=== PATIENT | male | born 1980 | race Two or more races ===

== ENCOUNTER 2017-12-02 20:42 | Inpatient (IN) | payer BC, MEDICAID ==
[~2017-12-02] VITALS: Ht 175.3 cm; Wt 96.6 kg
[2017-12-02 21:33] LABS: Basophils # (auto) 0 uL; Basophils % (auto) 0.4 % (0.0-2.0); Eosinophils # (auto) 0.2 uL; Eosinophils % (auto) 1.9 % (0.0-7.0); Hematocrit 42.4 % (41.0-53.0); Hemoglobin 14.2 g/dL (13.5-17.5); Lymphocytes # (auto) 1.7 uL; Lymphocytes % (auto) 14.6 % (10.0-50.0); Mean Corpuscular Hemoglobin 31.1 pg (28.0-32.0); Mean Corpuscular Hgb Conc. 33.4 g/dL (32.0-36.0); Mean Corpuscular Volume 93.3 fL (80.0-100.0); Monocytes # (auto) 0.9 uL; Monocytes % (auto) 7.6 % (0.0-12.0); Neutrophils # (auto) 8.8 uL; Neutrophils % (auto) 75.5 % (37.0-80.0); Nucleated Red Blood Cells % 0.1 %; Platelet Count (auto) 236 10^3/uL (140-450); Red Blood Cells 4.54 10^6/uL (4.5-5.90); Red Cell Distribution Width 12.4 % (11.8-14.3); White Blood Cell 11.6 10^3/uL (4.4-10.8)
[2017-12-02 21:48] LABS: Urine Bacteria NONE SEEN /hpf (None Seen); Urine Blood Negative /uL (Negative); Urine Specific Gravity 1.024 (1.001-1.035); Urine WBC <1 /hpf (0 - 3)
[2017-12-02 21:51] LABS: Albumin 3.9 g/dL (3.4-5.0); BUN/Creatinine Ratio 15.6; Calcium 9.5 mg/dL (8.5-10.1); Potassium 3.7 mmol/L (3.5-5.1)
[2017-12-02 21:54] LABS: Bilirubin, Total 0.3 mg/dL (0.2-1.0); Total Protein 7.5 g/dL (6.4-8.2)
[2017-12-03] MEDS ORDERED: VANCOMYCIN PER PHARMACY 0 MG IV SCH (07:45)
[2017-12-03] MEDS ORDERED: LORazepam 0.5 MG TAB PO PRN (10:30)
[2017-12-03] MEDS ORDERED: LEVOFLOXACIN 500MG 100 ML IV ONE (10:30)
[2017-12-03] MEDS ORDERED: TEMAZEPAM 15 MG CAP PO PRN (10:30)
[2017-12-03] MEDS ORDERED: ACETAMINOPHEN 500 MG TAB PO PRN (10:30)
[2017-12-03] MEDS: PROMETHAZINE HCL 25 MG/ML 1ML IV PRN ×3 (10:48→21:45)
[2017-12-03] MEDS: MORPHINE SULFATE 10 MG/ML INJ 1ML SDV IV PRN ×3 (10:49→22:11)
[2017-12-03] MEDS: SODIUM CHLORIDE 0.9% 1,000 ML IV SCH ×2 (10:53→20:19)
[2017-12-03] MEDS: metroNIDAZOLE 500MG/100ML 100 ML IV SCH ×3 (12:11→23:51)
[2017-12-03 12:47] LABS: Hematocrit 41.3 % (41.0-53.0); Hemoglobin 14.1 g/dL (13.5-17.5)
[2017-12-03 13:13] LABS: INR 0.97 (0.9-1.15); Partial Thromboplastin Time 34.1 sec (22.64-33.71); Prothrombin Time 10.6 sec (9.37-12.3)
[2017-12-03 18:32] LABS: Hematocrit 39.9 % (41.0-53.0); Hemoglobin 13.4 g/dL (13.5-17.5)
[2017-12-03 20:00] VITALS: BP 106/55
[2017-12-03 21:35] VITALS: BP 106/55
[2017-12-03] MEDS ORDERED: MORPHINE SULF INJ 2 MG/ML SYRINGE 1ML ONE (21:39)
[2017-12-03] MEDS: FAMOTIDINE 20 MG TAB PO SCH (21:45)
[2017-12-04 01:24] LABS: Hematocrit 37.1 % (41.0-53.0); Hemoglobin 12.6 g/dL (13.5-17.5)
[2017-12-04] MEDS ORDERED: MULTTAB61 PO (03:19)
[2017-12-04] MEDS: metroNIDAZOLE 500MG/100ML 100 ML IV SCH ×4 (05:49→23:55)
[2017-12-04] MEDS ORDERED: MORPHINE SULF INJ 2 MG/ML SYRINGE 1ML ONE (05:56)
[2017-12-04 06:00] VITALS: BP 97/52
[2017-12-04] MEDS: MORPHINE SULFATE 10 MG/ML INJ 1ML SDV IV PRN (06:08)
[2017-12-04] MEDS: SODIUM CHLORIDE 0.9% 1,000 ML IV SCH ×2 (06:19→18:35)
[2017-12-04 08:57] VITALS: BP 96/54
[2017-12-04] MEDS: FAMOTIDINE 20 MG TAB PO SCH ×2 (10:52→22:03)
[2017-12-04] MEDS: LEVOFLOXACIN 500MG 100 ML IV SCH (10:52)
[2017-12-04] MEDS: MORPHINE SULF INJ 2 MG/ML SYRINGE 1ML IV PRN ×2 (12:17→19:05)
[2017-12-04 13:00] VITALS: BP 114/61
[2017-12-04 17:00] VITALS: BP 113/69
[2017-12-04 20:00] VITALS: BP 133/75
[2017-12-04 22:00] VITALS: BP 133/75
[2017-12-05] MEDS: MORPHINE SULF INJ 2 MG/ML SYRINGE 1ML IV PRN ×4 (01:30→19:19)
[2017-12-05] MEDS: SODIUM CHLORIDE 0.9% 1,000 ML IV SCH ×3 (02:19→22:24)
[2017-12-05 05:00] VITALS: BP 117/66
[2017-12-05 05:37] LABS: Basophils # (auto) 0 uL; Basophils % (auto) 0.4 % (0.0-2.0); Eosinophils # (auto) 0.2 uL; Eosinophils % (auto) 3.3 % (0.0-7.0); Hemoglobin 12.4 g/dL (13.5-17.5); Lymphocytes # (auto) 1.4 uL; Lymphocytes % (auto) 24.6 % (10.0-50.0); Mean Corpuscular Hemoglobin 31.4 pg (28.0-32.0); Mean Corpuscular Hgb Conc. 33.5 g/dL (32.0-36.0); Mean Corpuscular Volume 93.7 fL (80.0-100.0); Monocytes # (auto) 0.5 uL; Monocytes % (auto) 9.3 % (0.0-12.0); Neutrophils # (auto) 3.5 uL; Neutrophils % (auto) 62.4 % (37.0-80.0); Nucleated Red Blood Cells % 0.1 %; Platelet Count (auto) 218 10^3/uL (140-450); Red Blood Cells 3.95 10^6/uL (4.5-5.90); Red Cell Distribution Width 12.4 % (11.8-14.3); White Blood Cell 5.7 10^3/uL (4.4-10.8)
[2017-12-05] MEDS: metroNIDAZOLE 500MG/100ML 100 ML IV SCH ×3 (05:57→18:11)
[2017-12-05 06:00] LABS: BUN/Creatinine Ratio 9.4; Calcium 8.8 mg/dL (8.5-10.1); Potassium 3.9 mmol/L (3.5-5.1)
[2017-12-05 09:00] VITALS: BP 111/68
[2017-12-05] MEDS: LEVOFLOXACIN 500MG 100 ML IV SCH (09:23)
[2017-12-05] MEDS: FAMOTIDINE 20 MG TAB PO SCH ×2 (09:23→21:09)
[2017-12-05] MEDS: HYDROcodone-ACET 5/325MG TAB PO PRN ×2 (09:29→20:49)
[2017-12-05 12:37] VITALS: BP 143/91
[2017-12-05 16:59] VITALS: BP 119/79
[2017-12-05] MEDS: PROMETHAZINE HCL 25 MG/ML 1ML IV PRN (20:46)
[2017-12-05 22:00] VITALS: BP 139/91
[2017-12-06] MEDS: MORPHINE SULF INJ 2 MG/ML SYRINGE 1ML IV PRN ×2 (00:15→05:54)
[2017-12-06 05:10] VITALS: BP 100/63
[2017-12-06] MEDS: metroNIDAZOLE 500MG/100ML 100 ML IV SCH ×3 (05:53→12:00)
[2017-12-06 06:20] LABS: Basophils # (auto) 0 uL; Basophils % (auto) 0.5 % (0.0-2.0); Eosinophils # (auto) 0.2 uL; Eosinophils % (auto) 4.4 % (0.0-7.0); Hematocrit 37.1 % (41.0-53.0); Hemoglobin 12.7 g/dL (13.5-17.5); Lymphocytes # (auto) 1.5 uL; Lymphocytes % (auto) 29.9 % (10.0-50.0); Mean Corpuscular Hemoglobin 31.8 pg (28.0-32.0); Mean Corpuscular Hgb Conc. 34.2 g/dL (32.0-36.0); Mean Corpuscular Volume 93.1 fL (80.0-100.0); Monocytes # (auto) 0.6 uL; Monocytes % (auto) 12.1 % (0.0-12.0); Neutrophils # (auto) 2.7 uL; Neutrophils % (auto) 53.1 % (37.0-80.0); Nucleated Red Blood Cells % 0.1 %; Platelet Count (auto) 237 10^3/uL (140-450); Red Blood Cells 3.98 10^6/uL (4.5-5.90); Red Cell Distribution Width 12.5 % (11.8-14.3)
[2017-12-06 07:22] VITALS: BP 97/48
[2017-12-06] MEDS: LEVOFLOXACIN 500MG 100 ML IV SCH (09:35)
[2017-12-06] MEDS: FAMOTIDINE 20 MG TAB PO SCH (09:35)
[2017-12-06] MEDS: SODIUM CHLORIDE 0.9% 1,000 ML IV SCH (09:38)
[2017-12-06 11:32] VITALS: BP 97/54
[2017-12-06 12:14] VITALS: BP 106/63
== END 2017-12-06 14:00 | disposition home or self-care (01) | DRG 378 ==
LOC: ER 20:42 → OVERFLOW 20:43 → WEST WING 12-03 16:57 → CENTRAL 12-03 18:53
PROVIDERS: ADMIT Internal Medicine; ATTEND Internal Medicine
DX: K92.2 Gastrointestinal hemorrhage, unspecified (principal); K57.32 Diverticulitis of large intestine without perforation or abscess without bleeding; K52.9 Noninfective gastroenteritis and colitis, unspecified; D64.9 Anemia, unspecified; Z82.0 Family history of epilepsy and other diseases of the nervous system; Z82.49 Family history of ischemic heart disease and other diseases of the circulatory system; Z83.3 Family history of diabetes mellitus; Z88.0 Allergy status to penicillin
CPT/HCPCS: 36415; 71045; 74176; 80048; 80053; 81001; 82270; 82378; 83605; 83690; 85014; 85018; 85025; 85045; 85610; 85652; 85730; 86141; 86850; 86900; 86901; 87040; 96361; 96365; 96375; J1956; J3490

== ENCOUNTER 2017-12-29 16:32 | Inpatient (IN) | payer BC ==
[~2017-12-29] VITALS: Ht 175.3 cm; Wt 83.9 kg
[~2017-12-29 16:32] MED LIST: MULTTAB61 PO
[2017-12-30] MEDS ORDERED: SODIUM CHLORIDE 0.9% 1,000 ML IVB ONE (09:14)
[2017-12-30] MEDS ORDERED: cefTRIAXone 1GM/10ml IVPUSH 10 ML IV ONE (09:15)
[2017-12-30] MEDS ORDERED: MORPHINE SULF INJ 2 MG/ML SYRINGE 1ML IV PRN (09:15)
[2017-12-30] MEDS ORDERED: PROMETHAZINE HCL 25 MG/ML 1ML IV PRN ×2 (09:15→13:30)
[2017-12-30] MEDS ORDERED: MORPHINE SULFATE 4 MG/ML SYR/VIAL IV PRN ×3 (09:30→13:30)
[2017-12-30 09:38] LABS: Basophils # (auto) 0 uL; Basophils % (auto) 0.2 % (0.0-2.0); Eosinophils # (auto) 0.1 uL; Eosinophils % (auto) 1.9 % (0.0-7.0); Hematocrit 42.3 % (41.0-53.0); Hemoglobin 14.3 g/dL (13.5-17.5); Lymphocytes # (auto) 1.4 uL; Lymphocytes % (auto) 20.7 % (10.0-50.0); Mean Corpuscular Hemoglobin 31.3 pg (28.0-32.0); Mean Corpuscular Hgb Conc. 33.7 g/dL (32.0-36.0); Mean Corpuscular Volume 92.8 fL (80.0-100.0); Monocytes # (auto) 0.5 uL; Monocytes % (auto) 7.8 % (0.0-12.0); Neutrophils # (auto) 4.6 uL; Neutrophils % (auto) 69.4 % (37.0-80.0); Nucleated Red Blood Cells % 0.1 %; Platelet Count (auto) 226 10^3/uL (140-450); Red Blood Cells 4.55 10^6/uL (4.5-5.90); White Blood Cell 6.6 10^3/uL (4.4-10.8)
[2017-12-30 09:59] LABS: Albumin 3.9 g/dL (3.4-5.0); BUN/Creatinine Ratio 12.3; Bilirubin, Total 0.6 mg/dL (0.2-1.0); Calcium 9.1 mg/dL (8.5-10.1); Total Protein 7.8 g/dL (6.4-8.2)
[2017-12-30 10:30] LABS: Magnesium 2.4 mg/dL (1.6-2.6)
[2017-12-30 10:52] LABS: Urine WBC None Seen /hpf (0 - 3)
[2017-12-30 11:41] LABS: Urine Bacteria NONE SEEN /hpf (None Seen); Urine Blood Negative /uL (Negative); Urine Specific Gravity 1.017 (1.001-1.035)
[2017-12-30] MEDS ORDERED: HYDROcodone-ACET 5/325MG TAB PO PRN (13:30)
[2017-12-30] MEDS ORDERED: FAMOTIDINE (10MG/ML) 2ML VL IV SCH (13:30)
[2017-12-30] MEDS ORDERED: NITROGLYCERIN 0.4 MG SL TAB SL PRN (13:30)
[2017-12-30] MEDS ORDERED: TEMAZEPAM 15 MG CAP PO PRN (13:30)
[2017-12-30] MEDS ORDERED: DEXTROSE (50%) 50ML SYRG IV PRN (13:30)
[2017-12-30] MEDS ORDERED: ACETAMINOPHEN 500 MG TAB PO PRN (13:30)
[2017-12-30] MEDS ORDERED: LORazepam 0.5 MG TAB PO PRN (13:30)
[2017-12-30] MEDS ORDERED: LEVOFLOXACIN 500MG 100 ML IV ONE (13:30)
[2017-12-30 14:17] LABS: CRP High Sensitivity 2.98 mg/dL (< 0.3)
[2017-12-30] MEDS: SODIUM CHLORIDE 0.9% 1,000 ML IV SCH ×2 (14:24)
[2017-12-30] MEDS: metroNIDAZOLE 500MG/100ML 100 ML IV SCH ×2 (14:32→18:08)
[2017-12-30] MEDS: ACCU-CHEK COMFORT CURVE STRIP VI SCH (18:09)
[2017-12-30 22:00] VITALS: BP 122/78
[2017-12-30] MEDS: FAMOTIDINE (10MG/ML) 2ML VL IV SCH (22:00)
[2017-12-31] MEDS: ACCU-CHEK COMFORT CURVE STRIP VI SCH ×3 (00:23→11:13)
[2017-12-31] MEDS: metroNIDAZOLE 500MG/100ML 100 ML IV SCH ×3 (00:23→11:13)
[2017-12-31] MEDS: SODIUM CHLORIDE 0.9% 1,000 ML IV SCH ×2 (05:20→12:28)
[2017-12-31 06:17] VITALS: BP 97/56
[2017-12-31 08:00] VITALS: BP 99/47
[2017-12-31 08:25] VITALS: BP 99/47
[2017-12-31 09:32] LABS: Hematocrit 40.1 % (41.0-53.0); Hemoglobin 13.4 g/dL (13.5-17.5)
[2017-12-31] MEDS: FAMOTIDINE (10MG/ML) 2ML VL IV SCH (09:41)
[2017-12-31] MEDS ORDERED: LEVOFLOXACIN 500MG 100 ML IV SCH ×2 (10:00)
[2017-12-31 11:55] VITALS: BP 116/63
[2017-12-31 14:45] VITALS: BP 116/63
== END 2017-12-31 15:35 | disposition home or self-care (01) | DRG 392 ==
LOC: ER 16:35 → TELE 16:36 → UNDODISIN 12-30 17:50 → TELE-EAST 12-30 18:52
PROVIDERS: ADMIT Internal Medicine; ATTEND Family Medicine
DX: K57.32 Diverticulitis of large intestine without perforation or abscess without bleeding (principal); K92.2 Gastrointestinal hemorrhage, unspecified; K57.30 Diverticulosis of large intestine without perforation or abscess without bleeding; E66.3 Overweight; E73.9 Lactose intolerance, unspecified; Z82.49 Family history of ischemic heart disease and other diseases of the circulatory system; Z83.3 Family history of diabetes mellitus; Z68.27 Body mass index [BMI] 27.0-27.9, adult; Z82.0 Family history of epilepsy and other diseases of the nervous system; Z88.0 Allergy status to penicillin; Z80.42 Family history of malignant neoplasm of prostate; Z82.3 Family history of stroke
CPT/HCPCS: 36415; 74176; 80053; 81001; 82150; 82378; 82962; 83036; 83690; 83735; 85014; 85018; 85025; 85045; 85652; 86141; 86850; 86900; 86901; 87081; 96361; 96374; 96375; J1956; J3490

== ENCOUNTER 2021-10-26 07:59 | Emergency (ER) | payer BC, OTHER ==
[~2021-10-26] VITALS: Ht 172.7 cm; Wt 79.4 kg
[~2021-10-26 07:59] MED LIST changes: +MULT-1018 PO; -MULTTAB61 PO
[2021-10-26 09:15] VITALS: BP 117/80
[2021-10-26] MEDS ORDERED: ACETAMINOPHEN 500 MG TAB PO ONE (09:30)
[2021-10-26] MEDS ORDERED: ZINC100T5 PO (09:42)
[2021-10-26] MEDS ORDERED: METH4PAK PO (09:42)
[2021-10-26] MEDS ORDERED: PROM1SOL4 PO (09:42)
[2021-10-26] MEDS ORDERED: LIDOCAINE 1% HCL (LOCAL ANESTH.) INJ 20ML MDV IJ ONE (09:45)
[2021-10-26] MEDS ORDERED: cefTRIAXone SOD 1,000 MG VL IM ONE (09:45)
== END 2021-10-26 10:06 | disposition home or self-care (01) ==
LOC: ER 07:59
DX: U07.1 COVID-19 (principal); M79.10 Myalgia, unspecified site; F17.210 Nicotine dependence, cigarettes, uncomplicated; Z88.0 Allergy status to penicillin
CPT/HCPCS: 71045; 96372; 99283; J0696; J2001

== ENCOUNTER 2021-10-30 16:08 | Emergency (ER) | payer OTHER ==
[~2021-10-30] VITALS: Ht 172.7 cm; Wt 77.1 kg
[~2021-10-30 16:08] MED LIST changes: +METH4PAK PO; +PROM1SOL4 PO; +ZINC100T5 PO
[2021-10-30 16:10] VITALS: BP 111/70
[2021-10-30] MEDS ORDERED: SODIUM CHLORIDE 0.9% 1,000 ML IV ONE (16:45)
[2021-10-30] MEDS ORDERED: ONDANSETRON HCL 4 MG/2 ML VIAL IV ONE (16:45)
== END 2021-10-30 17:28 | disposition left against medical advice (07) ==
LOC: ER 16:08
DX: U07.1 COVID-19 (principal); M79.10 Myalgia, unspecified site; F17.210 Nicotine dependence, cigarettes, uncomplicated; Z90.89 Acquired absence of other organs; Z53.29 Procedure and treatment not carried out because of patient's decision for other reasons; Z88.0 Allergy status to penicillin
CPT/HCPCS: 71045

== ENCOUNTER 2022-03-25 06:16 | Inpatient (IN) | payer BC, OTHER ==
[~2022-03-25] VITALS: Ht 175.3 cm; Wt 89.0 kg
[2022-03-25] MEDS ORDERED: SODIUM CHLORIDE 0.9% 1,000 ML IV ONE ×2 (07:00)
[2022-03-25] MEDS ORDERED: PROCHLORPERAZINE EDISYLATE 5 MG/ML 2ML VIAL IV ONE (07:00)
[2022-03-25] MEDS ORDERED: MORPHINE SULFATE 4 MG/ML SYR/VIAL IV ONE ×2 (07:00→09:00)
[2022-03-25 08:15] LABS: Basophils # (auto) 0 10 ^3/uL (0-0.2); Basophils % (auto) 0.2 % (0.0-2.0); Eosinophils # (auto) 0 10 ^3/uL (0-0.8); Eosinophils % (auto) 0.1 % (0.0-7.0); Hematocrit 40.8 % (41.0-53.0); Hemoglobin 13.9 g/dL (13.5-17.5); Lymphocytes # (auto) 0.7 10 ^3/uL (0.4-5.4); Lymphocytes % (auto) 4.5 % (10.0-50.0); Mean Corpuscular Hemoglobin 31.3 pg (28.0-32.0); Monocytes # (auto) 0.6 10 ^3/uL (0-1.3); Monocytes % (auto) 4.1 % (0.0-12.0); Neutrophils # (auto) 14.2 10 ^3/uL (1.6-8.6); Neutrophils % (auto) 91.1 % (37.0-80.0); Red Blood Cells 4.44 10^6/uL (4.5-5.90); Red Cell Distribution Width 12.5 % (11.8-14.3); White Blood Cell 15.6 10^3/uL (4.4-10.8)
[2022-03-25 08:30] LABS: Albumin 4.1 g/dL (3.4-5.0); Calcium 9.5 mg/dL (8.5-10.1); Magnesium 1.7 mg/dL (1.6-2.6); Potassium 3.3 mmol/L (3.5-5.1)
[2022-03-25 08:35] LABS: BUN/Creatinine Ratio 14.2; Bilirubin, Total 0.8 mg/dL (0.2-1.0); Total Protein 7.3 g/dL (6.4-8.2)
[2022-03-25] MEDS ORDERED: LORazepam 2MG/ML-1ML VIAL IV ONE (09:00)
[2022-03-25] MEDS ORDERED: cefTRIAXone 1GM/50ML D5W 50 ML IV ONE (09:00)
[2022-03-25] MEDS ORDERED: PIPERACILLIN-TAZOB 3.375GM 100 ML IV ONE (11:00)
[2022-03-25] MEDS ORDERED: MORPHINE SULFATE INJ 2 MG/ml SYRG IV PRN (11:45)
[2022-03-25] MEDS ORDERED: NITROGLYCERIN 0.4 MG SL TAB SL PRN (11:45)
[2022-03-25] MEDS ORDERED: ONDANSETRON HCL 4 MG/2 ML VIAL IV PRN (11:45)
[2022-03-25 13:19] LABS: Alcohol, Urine < 3.0 mg/dL (0-10); Amphetamine Screen, Urine NEGATIVE (NEGATIVE); Barbiturate Scree,Urine NEGATIVE (NEGATIVE); Benzodiazephine Screen, Urine NEGATIVE (NEGATIVE); Cannabinoid Screen, Urine POSITIVE (NEGATIVE); Cocaine Screen, Urine NEGATIVE (NEGATIVE); Opiate Scree,Urine POSITIVE (NEGATIVE); Phencyclidine Screen, Urine NEGATIVE (NEGATIVE)
[2022-03-25 13:30] LABS: Urine Bacteria NONE SEEN /hpf (None Seen); Urine Blood Negative /uL (Negative); Urine Mucus FEW (None Seen); Urine Specific Gravity 1.019 (1.001-1.035); Urine WBC <1 /hpf (0 - 3)
[2022-03-25] MEDS: MORPHINE SULFATE INJ 2 MG/ml SYRG IV PRN ×2 (15:13→20:27)
[2022-03-25 17:00] VITALS: BP 104/69
[2022-03-25 22:00] VITALS: BP 113/72
[2022-03-26] MEDS: MORPHINE SULFATE INJ 2 MG/ml SYRG IV PRN ×3 (03:06→17:24)
[2022-03-26 05:00] VITALS: BP 97/58
[2022-03-26 06:55] LABS: INR 1.03 (0.9-1.15); Partial Thromboplastin Time 31.3 sec (23.6-33.0)
[2022-03-26 09:00] VITALS: BP 115/57
[2022-03-26] MEDS: PANTOPRAZOLE 40 MG/10 ML VIAL INJ IV SCH (09:40)
[2022-03-26] MEDS ORDERED: BUPIVACAINE 0.25% INJ 50ML VIAL ONE (10:14)
[2022-03-26] MEDS ORDERED: SUCCINYLCHOLINE CHLORIDE 20 MG/ML 10ML VIAL IV ONE (11:13)
[2022-03-26] MEDS ORDERED: fentaNYL CITRATE 100 MCG/2 ML VL ONE (11:16)
[2022-03-26] MEDS ORDERED: MIDAZOLAM HCL 2MG/2ML 2ml VIAL (1mg/ml) ONE (11:16)
[2022-03-26] MEDS ORDERED: ROCURONIUM 10MG/ML 10ML VIAL IV ONE (11:39)
[2022-03-26] MEDS ORDERED: PROPOFOL 10 MG/ML 20 ML IV ONE (11:55)
[2022-03-26] MEDS ORDERED: METOCLOPRAMIDE HCL 5MG/ml INJ 2ml VIAL ONE (11:55)
[2022-03-26] MEDS ORDERED: LIDOCAINE 2% (LOCAL ANESTH.) PF 5ml SDV ONE (11:55)
[2022-03-26] MEDS ORDERED: ONDANSETRON HCL 4 MG/2 ML VIAL ONE (11:55)
[2022-03-26] MEDS ORDERED: NEOSTIGMINE 1 MG/ML INJ (10mg/10ML VIAL) ONE (11:55)
[2022-03-26] MEDS ORDERED: DexAMETHasone SOD PHOS 10MG/1ML VIAL INJ ONE (11:55)
[2022-03-26] MEDS ORDERED: KETOROLAC TROMETH 30 MG/ML 1ML VIAL ONE (11:55)
[2022-03-26] MEDS ORDERED: GLYCOPYRROLATE 0.2 MG/ML 1ML VIAL ONE (11:55)
[2022-03-26] MEDS ORDERED: KETOROLAC TROMETH 60MG/2ML VIAL ONE (12:03)
[2022-03-26] MEDS ORDERED: HYDROmorphone HCL 2 MG/ML VL/or syr ONE (12:35)
[2022-03-26] MEDS ORDERED: HYDROmorphone HCL 2 MG/ML VL/or syr IV ONE ×2 (12:36→12:46)
[2022-03-26] MEDS ORDERED: ONDANSETRON HCL 4 MG/2 ML VIAL IV PRN (12:45)
[2022-03-26] MEDS ORDERED: METOCLOPRAMIDE HCL 5MG/ml INJ 2ml VIAL IV PRN (12:45)
[2022-03-26] MEDS ORDERED: HYDROmorphone HCL 2 MG/ML VL/or syr IV PRN (12:45)
[2022-03-26] MEDS ORDERED: levoFLOXacin 500MG 100 ML IV ONE (13:45)
[2022-03-26] MEDS: metroNIDAZOLE 500MG/100ML 100 ML IV SCH ×2 (16:37→23:21)
[2022-03-26 17:00] VITALS: BP 109/60
[2022-03-26 22:00] VITALS: BP 127/71
[2022-03-27] MEDS: MORPHINE SULFATE INJ 2 MG/ml SYRG IV PRN ×3 (01:50→18:10)
[2022-03-27 05:14] VITALS: BP 114/52
[2022-03-27] MEDS: metroNIDAZOLE 500MG/100ML 100 ML IV SCH ×3 (06:06→22:55)
[2022-03-27] MEDS: PANTOPRAZOLE 40 MG/10 ML VIAL INJ IV SCH (08:14)
[2022-03-27 09:37] VITALS: BP 106/52
[2022-03-27] MEDS: levoFLOXacin 500MG 100 ML IV SCH (10:17)
[2022-03-27 11:11] LABS: Basophils # (auto) 0.1 10 ^3/uL (0-0.2); Basophils % (auto) 0.8 % (0.0-2.0); Eosinophils # (auto) 0 10 ^3/uL (0-0.8); Eosinophils % (auto) 0.1 % (0.0-7.0); Hemoglobin 13.4 g/dL (13.5-17.5); Lymphocytes # (auto) 1.3 10 ^3/uL (0.4-5.4); Lymphocytes % (auto) 7.9 % (10.0-50.0); Mean Corpuscular Hemoglobin 31.5 pg (28.0-32.0); Mean Corpuscular Hgb Conc. 33.5 g/dL (32.0-36.0); Mean Corpuscular Volume 94.1 fL (80.0-100.0); Monocytes # (auto) 0.7 10 ^3/uL (0-1.3); Monocytes % (auto) 4.6 % (0.0-12.0); Neutrophils # (auto) 14.1 10 ^3/uL (1.6-8.6); Neutrophils % (auto) 86.6 % (37.0-80.0); Red Blood Cells 4.26 10^6/uL (4.5-5.90); White Blood Cell 16.3 10^3/uL (4.4-10.8)
[2022-03-27 13:00] VITALS: BP 116/76
[2022-03-27 16:58] VITALS: BP 112/72
[2022-03-27 22:00] VITALS: BP 125/77
[2022-03-28 05:00] VITALS: BP 114/70
[2022-03-28] MEDS: metroNIDAZOLE 500MG/100ML 100 ML IV SCH (06:11)
[2022-03-28] MEDS: MORPHINE SULFATE INJ 2 MG/ml SYRG IV PRN ×2 (07:02→13:06)
[2022-03-28] MEDS: levoFLOXacin 500MG 100 ML IV SCH (10:06)
[2022-03-28] MEDS ORDERED: HYDR-4902 PO (10:29)
[2022-03-28] MEDS ORDERED: LEVO500T31 PO (10:29)
[2022-03-28] MEDS ORDERED: METR500T PO (10:29)
[2022-03-28] MEDS ORDERED: LACTULOSE 20Gm/30ML SOLN PO ONE (10:30)
[2022-03-28 12:17] VITALS: BP 114/70
[2022-03-28 13:06] VITALS: BP 115/81
== END 2022-03-28 13:30 | disposition home or self-care (01) | DRG 853 ==
LOC: ER 06:16 → OVERFLOW 11:45 → CENTRAL 15:28
PROVIDERS: ADMIT Hospitalist; ATTEND Family Medicine
PROC: 0DTJ4ZZ Resection of Appendix, Percutaneous Endoscopic Approach (ICD-10-PCS; principal; 2022-03-26 11:17)
DX: A41.9 Sepsis, unspecified organism (principal); K35.33 Acute appendicitis with perforation, localized peritonitis, and gangrene, with abscess; F17.210 Nicotine dependence, cigarettes, uncomplicated; Z20.822 Contact with and (suspected) exposure to COVID-19; E66.01 Morbid (severe) obesity due to excess calories; E86.0 Dehydration; I25.10 Atherosclerotic heart disease of native coronary artery without angina pectoris; Z86.73 Personal history of transient ischemic attack (TIA), and cerebral infarction without residual deficits; Z88.0 Allergy status to penicillin; Z68.26 Body mass index [BMI] 26.0-26.9, adult; Z86.16 Personal history of COVID-19; Z87.01 Personal history of pneumonia (recurrent); Z80.42 Family history of malignant neoplasm of prostate
CPT/HCPCS: 36415; 71045; 74176; 80053; 80307; 81001; 82150; 83605; 83690; 83735; 85025; 85610; 85730; 86850; 86900; 86901; 87040; 96361; 96365; 96375; C9113; G0378; J0330; J0696; J1100; J1885; J1956; J2001; J2250; J2405; J2543; J2704; J3490